=== PATIENT | female | born 1980 | race Two or more races ===

== ENCOUNTER → 2016-10-10 | Outpatient (CLI) | payer OTHER | LOC: FIMAGING 14:41 | PROVIDERS: ATTEND Obstetrics & Gynecology | DX: Z36 Encounter for antenatal screening of mother (principal); O24.112 Pre-existing type 2 diabetes mellitus, in pregnancy, second trimester; O09.522 Supervision of elderly multigravida, second trimester; Z3A.20 20 weeks gestation of pregnancy; E11.9 Type 2 diabetes mellitus without complications ==

== ENCOUNTER → 2016-12-09 | Outpatient (CLI) | payer OTHER | LOC: FIMAGING 08:12 | PROVIDERS: ATTEND Obstetrics & Gynecology | DX: O09.522 Supervision of elderly multigravida, second trimester (principal); O99.212 Obesity complicating pregnancy, second trimester; O24.112 Pre-existing type 2 diabetes mellitus, in pregnancy, second trimester; O36.8920 Maternal care for other specified fetal problems, second trimester, not applicable or unspecified; Z3A.21 21 weeks gestation of pregnancy ==

== ENCOUNTER → 2016-12-31 | Outpatient (CLI) | payer OTHER | LOC: FIMAGING 08:33 | PROVIDERS: ATTEND Obstetrics & Gynecology | DX: O24.112 Pre-existing type 2 diabetes mellitus, in pregnancy, second trimester (principal); E11.65 Type 2 diabetes mellitus with hyperglycemia; O09.522 Supervision of elderly multigravida, second trimester; O99.212 Obesity complicating pregnancy, second trimester; O36.8920 Maternal care for other specified fetal problems, second trimester, not applicable or unspecified; Z3A.24 24 weeks gestation of pregnancy; Z79.4 Long term (current) use of insulin ==

== ENCOUNTER → 2017-02-13 | Outpatient (CLI) | payer OTHER | LOC: FIMAGING 09:01 | PROVIDERS: ATTEND Obstetrics & Gynecology | DX: O24.113 Pre-existing type 2 diabetes mellitus, in pregnancy, third trimester (principal); O09.523 Supervision of elderly multigravida, third trimester; E11.9 Type 2 diabetes mellitus without complications; O99.213 Obesity complicating pregnancy, third trimester; Z79.4 Long term (current) use of insulin; Z3A.31 31 weeks gestation of pregnancy ==

== ENCOUNTER 2017-03-21 15:50 | Observation (INO) | payer OTHER ==
[2017-03-21] MEDS ORDERED: BETAMETHASONE IM SYRINGE IM ONE (17:17)
--- NOTE | 2017-03-21 17:21 | SOAPPROG ---
HUNG Progress Note Assessment/Plan: Assessment: 36-year-old @ 36.1 weeks with IDDM and multiple co-morbidities. She was sent over from clinic for extended monitoring for NR NST and BPP of 6. NST reactive. Plan: 1. NR NST at clinic. Now reactive. Repeat NST and possible BPP tomorrow () evening. 2. lung maturity. Betamethasone IM for lung maturity, in case delivery needs to be performed eminently. Return to hospital tomorrow evening (s /p 24h) for subsequent IM injection. 03/21/17 17:17 Subjective: No complaints. Reports good movement. Denies symptoms of hypo- or hyperglycemia. Objective: VSS NAD Abdomen soft [place]: No contractions FHR: 150, category I - Time Spent With Patient Time Spent With Patient: 25 minutes ICD10 Worksheet Patient Problems: Problems Problem Status Onset Insulin dependent diabetes mellitus Acute Non-reactive NST (non-stress test) Acute Third trimester Acute - ICD10 Problem Qualifiers (1) Insulin dependent diabetes mellitus (2) Third trimester (3) Non-reactive NST (non-stress test)
== END 2017-03-21 17:50 | disposition home or self-care (01) ==
LOC: FLD 15:50
PROVIDERS: ADMIT Obstetrics & Gynecology; ATTEND Obstetrics & Gynecology
DX: O09.523 Supervision of elderly multigravida, third trimester (principal); O24.013 Pre-existing type 1 diabetes mellitus, in pregnancy, third trimester; Z3A.36 36 weeks gestation of pregnancy
CPT/HCPCS: G0378 ×2; J0702

== ENCOUNTER 2017-03-22 17:56 | Observation (INO) | payer OTHER ==
[2017-03-22] MEDS ORDERED: BETAMETHASONE IM SYRINGE IM ONE (19:15)
--- NOTE | 2017-03-22 19:33 | OBPROG ---
Labor Progress Note Assessment/Plan: Assessment: cat 1 fhr denies pain/ no contractions BPP 8/8 growth us 55 % cephalic presentation jeffy 10 nst reactive reassuring elevated fs Increasing amount of insulin as needed with endocrinology assistance Plan:discharge to home with instructions. Fu in the office biweekly NST and weekly mira 03/22/17 19:30 Subjective/Intrapartum Course: 03/22/17 19:29 Feeling sleep deprived having difficulty resting. Elevated fs after steroids. Feeling positive movement . Denies leaking bleeding or cramping - SVE Dilation (cm): 0 Effacement (%): 0 Station: -3 Membranes: Intact - FHR Assessment Ruiz FHR (bpm): 135 FHR Pattern Variability: Moderate FHR Category: 1 - Physical Exam General Appearance: WD/WN, alert, no apparent distress Respiratory: chest non-tender, lungs clear, normal breath sounds Cardiac/Chest: regular rate, rhythm Abdomen: normal bowel sounds Extremities: normal range of motion, Sam's sign (negative homens) DTR- Lower Extremities: Knee (R): 1+, Knee (L): 1+ (no clonus) Skin: normal color, warm/dry Neuro/Psych: no motor/sensory deficits, alert, normal mood/affect, oriented x 3 ICD10 Worksheet Patient Problems: Problems Problem Status Onset Insulin dependent diabetes mellitus Acute Non-reactive NST (non-stress test) Acute Third trimester Acute
--- NOTE | 2017-03-22 20:15 | GHP ---
[f rep st] HISTORY AND PHYSICAL DATE OF ADMISSION: 03/22/2017 HISTORY OF PRESENT ILLNESS: The patient is a 36-year-old 5, para 0, 0, 4 AB, 0 livin g, with an EDC of 04/17/2017, who comes in with previous difficulty with a nonreactive NST yesterday on 03/21/2017. Betamethasone x1 given. Followup today with betamethasone #2, BPP, growth ultrasound , KODY, and an NST. The patient has been receiving care through [facility] since [place]. There was a change to the due date at that time from 04/17 to 04/23. The patient has consented to the second betamethasone. NST was reactive. Baseline was at 135, with positive accels. BPP was 8/8. A growth ultrasound was at the 55th percentile, with a 10 KODY. MEDICAL HISTORY: The patient has type 2 diabetes, on insulin, and [facility] Hemoglobin A1c in 10th percentile in early . GYNECOLOGICAL HISTORY: History of LEEP in 2001. Negative Pap since. IUD in 2010. PAST HISTORY: TAB in 2002, SAB and D and C in 02/2011, SAB with no D and C in 10/2014, and 04/2015 SAB with no D and C. FAMILY HISTORY: Noncontributory. SURGICAL HISTORY: D and C in 2010. Previous LEEP in 2001. PHYSICAL ASSESSMENT: GENERAL: The patient is awake, alert, and oriented x3. LUNGS: Clear bilatera lly. ABDOMEN: Bowel sounds are positive in all 4 quadrants. EXTREMITIES: DTRs are 1+ bilaterally, with no clonus. Homans sign was negative bilaterally. VITAL SIGNS: Blood pressure is 130/80. LABORATORY DATA: The patient is O-positive. Antibody negative. RPR was nonreactive. Rubella is im mune. Hepatitis is negative. HIV is negative. was negative. AFP was negative. The patie nt declined Pap with gonorrhea and chlamydia. Hepatitis C was also negative. PLAN: BPP, NST, and continued management of sugars that have been elevated since the betamethasone t [facility]. The patient will follow up with biweekly NSTs and weekly ROBs with [facility]. /[id number]/MODL
== END 2017-03-22 20:35 | disposition home or self-care (01) ==
LOC: FLD 17:56
PROVIDERS: ADMIT Advanced Practice Midwife; ATTEND Advanced Practice Midwife
DX: O09.523 Supervision of elderly multigravida, third trimester (principal); E11.9 Type 2 diabetes mellitus without complications; Z3A.36 36 weeks gestation of pregnancy
CPT/HCPCS: 59025; 76815; 76818; G0378; J0702

== ENCOUNTER 2017-03-24 17:56 | Observation (INO) | payer OTHER ==
[2017-03-24] MEDS ORDERED: ACETAMINOPHEN 500 MG TAB PO ONE (18:23)
[2017-03-24 18:42] LABS: % IMMATURE GRANULYOCYTES 1.2 % (0.0-1.1); ABSOLUTE IMMATURE GRANULOCYTES 0.14 10^3/uL (0.00-0.10); ADD DIFF? NO; ADD MORPH? NO; ADD SCAN? NO; ATYPICAL LYMPHOCYTE FLAG 0 (0-99); FRAGMENT RBC FLAG 0 (0-99); HEMATOCRIT 33.8 % (38.0-47.0); HEMOGLOBIN 11.8 g/dL (12.6-16.3); LEFT SHIFT FLG 0 (0-99); LIPEMIA HEMOLYSIS FLAG 90 (0-99); MEAN CELL HEMOGLOBIN 31.2 pg (27.9-34.1); MEAN CELL HEMOGLOBIN CONCENTR. 34.9 g/dL (32.4-36.7); MEAN CELL VOLUME 89.4 fL (81.5-99.8); MEAN PLATELET VOLUME 10.8 fL (8.7-11.7); PLATELET CLUMPS FLAG 0 (0-99); PLATELET COUNT 269 10^3/uL (150-400); RED BLOOD CELL COUNT 3.78 10^6/uL (4.18-5.33)
[2017-03-24 18:55] LABS: ALANINE AMINOTRANSFERASE 34 IU/L (9-52); ASPARTATE AMINOTRANSFERASE 34 IU/L (14-46); BILIRUBIN-UNCONJUGATED 0.1 mg/dL (0.0-1.1); CREATININE 0.6 mg/dL (0.6-1.0); GLOMERULAR FILTRATION RATE > 60; LACTATE DEHYDROGENASE 616 IU/L (313-618); URIC ACID 3.3 mg/dL (2.5-6.8)
[2017-03-24 19:03] LABS: BILIRUBIN,TOTAL 0.1 mg/dL (0.1-1.4)
--- NOTE | 2017-03-24 19:54 | OBPROG ---
Labor Progress Note Assessment/Plan: Assessment:cat 1 fhr pih labs wnl 1g tylenol to assist with headache resolution fs 178 denies leaking bleeding cramping vs wnl bp elevated irregularly however less than 140/90 with no pih symptoms Plan:warm blanket to head, 1 gram Tylenol, caffeine. Patient stated within 30 minutes the pain of the headache had lessened considerably discharge to home with instructions friday in the office 03/24/17 19:50 Subjective/Intrapartum Course: 03/24/17 19:49 here for a headache. BP elevated at the [facility] 130/88. To labor and delivery for an assessment Objective: 03/24/17 18:13 03/24/17 18:13 Uric Acid 3.3 mg/dL (2.5-6.8) 03/24/17 18:13 Total Bilirubin 0.1 mg/dL (0.1-1.4) 03/24/17 18:13 Conjugated Bilirubin 0.0 mg/dL (0.0-0.5) 03/24/17 18:13 Unconjugated Bilirubin 0.1 mg/dL (0.0-1.1) 03/24/17 18:13 AST 34 IU/L (14-46) 03/24/17 18:13 ALT 34 IU/L (9-52) 03/24/17 18:13 Lactate Dehydrogenase 616 IU/L (313-618) 03/24/17 18:13 - Physical Exam General Appearance: WD/WN, alert, no apparent distress Respiratory: chest non-tender, lungs clear, normal breath sounds Cardiac/Chest: regular rate, rhythm Abdomen: normal bowel sounds Extremities: normal range of motion, Sam's sign (negative bilaterally) DTR- Lower Extremities: Knee (R): 1+, Knee (L): 1+ (no clonus) Skin: normal color, warm/dry Neuro/Psych: no motor/sensory deficits, alert, normal mood/affect, oriented x 3 Oxytocin Orders Assessment - Pre-Induction/Augmentation Assessment Gestational Age: 36 week(s) and 4 day(s) ICD10 Worksheet Patient Problems: Problems Problem Status Onset Insulin dependent diabetes mellitus Acute Third trimester Acute
--- NOTE | 2017-03-24 20:28 | GHP ---
[f rep st] HISTORY AND PHYSICAL DATE OF ADMISSION: 03/24/2017 HISTORY OF PRESENT ILLNESS: The patient is a 36-year-old, 5, para 0, 0 A4, living 0 with an EDC of 04/23/2017 who comes in on 02/21/2017 with complaint of a headache since early a.m. on 02/21/2017. The patient's gestational age is 36 and 4/7 weeks', has recently received betamethasone x2. MEDICAL HISTORY: Diabetes type 2 on insulin, followed through [facility]. Has been havin g care through [facility] since 19 and 4/7 weeks', on 11/26/2016. GYNECOLOGICAL HISTORY: A LEEP in 2001. Negative Pap since. IUD use in 2010. . SURGICAL HISTORY: TAB 2011, D and C, SAB and IUD placed. PRESENT HISTORY: AMA. Hemoglobin A1c in early was 10%. LABS: Patient is O positive. Antibody negative. RPR is nonreactive. Rubella is immune. Hepatitis is negative. HIV is negative. Hep C is negative. Varicella was positive. The patient declined Pa p, gonorrhea and chlamydia. Innatal was negative. AFP was negative. PHYSICAL: GENERAL: Patient is awake, alert, oriented x3. LUNGS: Clear bilaterally. ABDOMEN: [place] el sounds are positive in all 4 quadrants. EXTREMITIES: DTRs are 1+ bilaterally with no clonus. JESSIE SIGNS: Blood pressures have been less than 140/90. Several pressures have been done here on the deck. The lowest is 123/79. On admit patient was given Tylenol, a warm blanket around her head. Stated that she thinks that mayb e she might have slept in an awkward position, this is why her head is hurting. PIH labs were comple eddie which were within normal limits. NST was a category 1. PLAN OF CARE: Discharge to home with instructions to follow up on Friday. Understands reasons to re turn leaking, bleeding, cramping, baby not moving. The patient's fingerstick on admit was 178. /[id number]/MODL
== END 2017-03-24 23:00 | disposition home or self-care (01) ==
LOC: FLD 17:56
PROVIDERS: ADMIT Advanced Practice Midwife; ATTEND Advanced Practice Midwife
DX: R51 Headache (principal); O09.523 Supervision of elderly multigravida, third trimester; Z3A.36 36 weeks gestation of pregnancy
CPT/HCPCS: 59025; G0378

== ENCOUNTER 2017-03-28 07:42 | Inpatient (IN) | payer OTHER ==
[2017-03-28] MEDS ORDERED: OXYTOCIN IV PRN (08:39)
[2017-03-28] MEDS ORDERED: EPSOM SALT 454 GM TP PRN (08:39)
[2017-03-28] MEDS ORDERED: AMPICILLIN SODIUM 2 GM in NS 100 ML IV ONE ×2 (08:39→11:15)
[2017-03-28] MEDS ORDERED: NS IV PRN (08:39)
[2017-03-28] MEDS ORDERED: TERBUTALINE SULFATE 1 MG/ML VIAL IV PRN (08:39)
[2017-03-28] MEDS ORDERED: LR 1,000 ML IV PRN (08:39)
[2017-03-28] MEDS ORDERED: OLIVE OIL 118 ML BTL MISC PRN (08:39)
[2017-03-28] MEDS ORDERED: LR 500 ML IV PRN (10:40)
[2017-03-28] MEDS ORDERED: OXYTOCIN 30 UNIT in NS 500 ML IV SCH (10:45)
[2017-03-28 11:05] LABS: % IMMATURE GRANULYOCYTES 0.4 % (0.0-1.1); ABSOLUTE IMMATURE GRANULOCYTES 0.05 10^3/uL (0.00-0.10); ADD DIFF? NO; ADD MORPH? NO; ADD SCAN? NO; ATYPICAL LYMPHOCYTE FLAG 0 (0-99); FRAGMENT RBC FLAG 0 (0-99); HEMATOCRIT 36.2 % (38.0-47.0); HEMOGLOBIN 12.6 g/dL (12.6-16.3); LEFT SHIFT FLG 0 (0-99); LIPEMIA HEMOLYSIS FLAG 90 (0-99); MEAN CELL HEMOGLOBIN CONCENTR. 34.8 g/dL (32.4-36.7); MEAN CELL VOLUME 88.9 fL (81.5-99.8); MEAN PLATELET VOLUME 10.7 fL (8.7-11.7); PLATELET CLUMPS FLAG 0 (0-99); PLATELET COUNT 295 10^3/uL (150-400); RED BLOOD CELL COUNT 4.07 10^6/uL (4.18-5.33); RED CELL DISTRIBUTION WIDTH 13.1 % (11.5-15.2)
[2017-03-28 11:13] LABS: ALANINE AMINOTRANSFERASE 30 IU/L (9-52); ASPARTATE AMINOTRANSFERASE 23 IU/L (14-46); BILIRUBIN,TOTAL 0.3 mg/dL (0.1-1.4); BILIRUBIN-UNCONJUGATED 0.3 mg/dL (0.0-1.1); CREATININE 0.6 mg/dL (0.6-1.0); GLOMERULAR FILTRATION RATE > 60; LACTATE DEHYDROGENASE 479 IU/L (313-618); URIC ACID 3.8 mg/dL (2.5-6.8)
--- NOTE | 2017-03-28 12:47 | GHP ---
[f rep st] PREOP HISTORY AND PHYSICAL DATE OF ADMISSION: 03/28/2017 HISTORY OF PRESENT ILLNESS: The patient is a 36-year-old, G5, A4 with an estimated due date of 04/17 per maternal specialist, who presents to Labor and Delivery at 37 weeks and 1 day with sp ontaneous rupture of membranes approximately 5:20 this morning with clear fluid. The patient initial ly only had a trickle, but then had more of a gush and continues to leak clear fluid here upon presen tation. The patient had spontaneous onset of contractions approximately 8:00 am, however, these are infrequent and only are feeling like menstrual cramping. The patient does have a history of positive GBS culture and is aware of the need for antibiotics. The patient also has a significant medical hi story of insulin-dependent diabetes pre-existing the , and the patient has not had good cont rol through the . She has been followed by [facility] and is on high doses of in sulin. The patient reports that her fasting this morning was 100 and the current blood sugar check a t 11:00 a.m. was 102. The patient reported eating a normal breakfast and having her current dose of Humulin 30 units and Humalog 30 units. The patient is advised of the intent of only having liquids t hrough labor to avoid the risk of aspiration if she needs a and we will monitor blood sugar s every 2 hours to assess when she might need IV glucose. The patient has had a natural intent for l abor, but is again aware of the recommendation for antibiotics because of the GBS and the recommendat ion for Pitocin if labor does not spontaneously increase to a more productive pattern. 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 The patient has a horse wrangler who she will call to come in and assist her with her labor attempt. CARE: The patient was initially followed by [facility] and transferred care to our office at 19 weeks gestation. In early care, the patient had Innatal negative test revealin g normal female chromosomes as well as a first trimester ultrasound screen that was normal. Other pr enatal labs were normal by the patient's report. The patient reports that her initial hemoglobin A1c in was greater than 10, and this has shown progressive decrease to 8.3 and then 6.9 to 6.5 in 3rd trimester. The patient has been following with Dr. Mcmahon who had to steadily increase i nsulin throughout the . The patient reports dietary control is only good about 60% of the t huey. The patient had a 24-hour urine baseline that was not completed until 23 weeks of vj t revealed 270 mg. The patient also had a cardiac echo that showed grossly normal cardiac toby manuel, but it was suboptimal views of the interventricular septum and aortic arch. The specialists rec ommended a echo in the hospital before discharge. The patient has declined surveillanc e on multiple occasions, feeling that she did not feel it was necessary, as she knew the baby was doi ng osmin. The patient has had nonreactive NSTs in the office but the patient has opted not to follow up. She did have a biophysical profile on February 18 that was minimally 6/8 and was seen on Labor and Delivery at which time she had a better reactive NST. Because of the concerns for placental supp ort, betamethasone was initiated and the patient had a course completed on March 21 and . T he patient improved her hydration and the fluid level was better on the ultrasound on March 22. Full growth was done at that time and estimated weight was the 55th percentile. Serial growth scans have been done with the specialist due to the diabetes and a single umbilical artery. The [place] has had glucosuria on visits to our office. Blood pressures have been in normal range, but poly ping up to the 80s diastolic on recent visits. LABS: Maternal blood type O positive with negative antibody screen. RPR nonreactive. Rube lla immune. Hepatitis B surface antigen negative. HIV negative. TSH was normal. PIH labs were nor mal in November. Hepatitis C antibody negative. Herpes type 1 positive. Herpes type 2 negative. Varic sloan immune. Patient declined a Pap smear and has a history of an February, negative Pap. Innat al verified testing was negative and MSAFP was normal. Positive GBS culture. CARE: The patient has insulin-dependent diabetes diagnosed in 2010 and has been seeing Dr. Mcmahon. Again, the patient was out of control when she conceived with hemoglobin A1c greater th an 10. The patient has had abnormal Pap smears with a LEEP performed in 2001 with negative Pap smear since. PAST SURGICAL HISTORY: TAB in 2002. Also a D&C in 2010 for a missed AB and an IUD was placed at vj t time. ALLERGIES: The patient reports allergy to metformin causing hives. Also reports that Invokana gives her shortness of breath and hives. Also, Novocain and lidocaine gives shortness of breath and heart palpitations. CURRENT MEDICATIONS: Upon admission vitamins, Humalog 30 units with each meal and Humulin 3 0 units b.i.d. SOCIAL HISTORY: The patient is , lives with her , Isaiah. The patient is a nonsmoker. No alcohol or drug use. PHYSICAL EXAM: GENERAL: Upon admission, the patient is an obese, female in no physical dis tress. The patient does have grossly ruptured membranes. VITAL SIGNS: Initial blood pressure was 1 31/84, pulse 103. The patient is afebrile. heart tone monitoring initially had a contiguous s ection that revealed category 1 tracing with a baseline in the 160s with good accelerations. Followi ng that, the monitoring has been difficult to keep consistent. There has been no evidence of D -cells documented and moderate variability with generally the baseline between the 150s and 170s. No regular contractions. PELVIC: Not performed at this time for dilation as the patient does not appe ar to be in labor yet and trying to minimize infection risk. The ultrasound performed on March 22 did reveal a vertex presentation. EXTREMITIES: Nontender, no edema noted. ASSESSMENT: Intrauterine at 37 weeks and 1 day. Insulin-dependent diabetes with very poor control with conception and poor control throughout the . Positive GBS culture. Spontaneo us rupture of membranes today without any real onset of contractions at this point. History of a ANNALISA P. Single umbilical artery with growth scans done and no signs of polyhydramnios and estimated weight in the 55th percentile. PLAN: We are giving the patient IV antibiotics. Pitocin has been recommended, but the patient has b een wanting to wait for spontaneous increase of contractions. She has been advised that after 8 hours fr om rupture, Pitocin will be recommended. We will attempt continuous monitoring, but this fetus is di fficult to maintain consistent tracing. The fetus does have increased risk of intolerance with a single umbilical artery and the diabetes as well as previously poor signs with monitoring with bio physical profile and NSTs. Betamethasone was received on March 21 and . Will proceed with observation at this time and induction when the patient will allow. For diabetic m onitoring, we will check blood sugars every 2 hours and institute IV glucose and insulin when n eeded. nurse practitioner is aware of the patient's diabetic status for preparation for the . /[id number]/MODL
[2017-03-28] MEDS: AMPICILLIN SODIUM 1 GM in NS 100 ML IV SCH ×2 (15:40→19:32)
--- NOTE | 2017-03-28 18:16 | PREANESOB ---
Obstetric Pre-Anesthesia Info - General Info : 5 Para: 0 ANN: 04/17/17 Gestational Age: 37 week(s) and 1 day(s) - Info Status: Full Term Monitors: External FHR Pattern: Reassuring - Labor Status Cervical Dilation per last OB SVE: 2 Labor Epidural: Proposed (wants to try nitrous for a while) Anesthesia Allergies/Adverse Reactions: Allergy/AdvReac Type Severity Reaction Status Date / Time canagliflozin [From Invokana] Allergy Verified 03/21/17 16:38 lidocaine [From Lidocare] Allergy Verified 03/21/17 16:38 metformin Allergy Verified 03/21/17 16:38 Home Medications: Medication Instructions Recorded Humalog 30 units SQ TID 03/21/17 1 tab PO DAILY 03/21/17 CO Q-10 200 mg PO DAILY 03/22/17 Dha/Epa/Mv/Dng Chai/Hrb42 1,000 mg PO DAILY 03/22/17 FOLIC ACID 1,000 mcg PO DAILY 03/22/17 HUMULIN R 32 unit SQ BID 03/22/17 VITAMIN D 5,000 iunits PO DAILY 03/22/17 Visit Medications: Generic Name Dose Route Start Last Admin Trade Name Freq PRN Reason Stop Dose Admin Ampicillin Sodium 1 gm/ Sodium 100 mls @ 200 mls/hr 03/28/17 15:00 03/28/17 15:40 Chloride IV 04/27/17 14:59 100 mls Q4H DEBORA Administration Protocol Lactated Ringer's 1,000 mls @ 0 mls/hr 03/28/17 08:39 Lr IV 09/24/17 08:38 PRN PRN SEE PROTOCOL CONDITIONS Protocol Per Protocol Oxytocin 20 unit/ Sodium 1,002 mls @ 150 mls/hr 03/28/17 08:39 Chloride IV PRN PRN Post- bleeding Lactated Ringer's 500 mls @ 500 mls/hr 03/28/17 10:40 Lr IV PRN PRN Maternal Hypotension Oxytocin 30 unit/ Sodium 503 mls @ 0 mls/hr 03/28/17 10:45 Chloride IV 09/24/17 10:44 CONT DEBORA Protocol Per Protocol Ibuprofen 600 mg 03/28/17 08:39 Motrin PO 09/24/17 08:38 Q6HRS PRN post , inflammation Magnesium Sulfate 454 gm 03/28/17 08:39 Epsom Salt TP 09/24/17 08:38 Q1H PRN perineal discomfort Moore Oil 118 ml 03/28/17 08:39 Sweet Oil MISC 09/24/17 08:38 ONCE PRN perineal massage Terbutaline Sulfate 0.25 mg 03/28/17 08:39 Brethine IV 09/24/17 08:38 ONCE PRN Tachysystole Discontinued Medications Generic Name Dose Route Start Last Admin Trade Name Waldo PRN Reason Stop Dose Admin Ampicillin Sodium 2 gm/ Sodium 110 mls @ 220 mls/hr 03/28/17 08:39 03/28/17 11:33 Chloride IV 03/28/17 09:08 110 mls ONCE ONE Administration Protocol Ampicillin Sodium 2 gm/ Sodium 110 mls @ 220 mls/hr 03/28/17 11:15 Chloride IV 03/28/17 11:44 ONCE ONE Protocol - Anesthesia History Anesthesia & Operative History: Prob w/Prior Anesthesia (allergy to novocaine ( not lidocaine), hives at dentist office) Family Anesthesia History: Negative - Social History Substance Use/Abuse: Denies - Vital Signs Height/Weight (Nursing): Height 157.48 cm Weight 120.202 kg - Focused Exam Neck exam: increased neck circumference Mallampati Score: Class 3 Mouth exam: normal dental/mouth exam Pulmonary: no respiratory distress Cardiovascular: regular rate and rhythym Labs: 03/28/17 10:30 03/28/17 10:30 Patient ABO/Rh O POSITIVE 03/28/17 10:30 Uric Acid 3.8 mg/dL (2.5-6.8) 03/28/17 10:30 Total Bilirubin 0.3 mg/dL (0.1-1.4) 03/28/17 10:30 Conjugated Bilirubin 0.0 mg/dL (0.0-0.5) 03/28/17 10:30 Unconjugated Bilirubin 0.3 mg/dL (0.0-1.1) 03/28/17 10:30 AST 23 IU/L (14-46) 03/28/17 10:30 ALT 30 IU/L (9-52) 03/28/17 10:30 Lactate Dehydrogenase 479 IU/L (313-618) 03/28/17 10:30 - Plan Anesthetic Plan: BERNARD or CSE Consent Signed and on Chart: No Patient/Guardian Understands and Agrees to Plan: Yes Urgent/Emergent Case: Anes eval completed preop but documented later for safe timely pt care General Comments: Patient wants to wait for epidural for awhile. Will sign consent then.
[2017-03-28] MEDS ORDERED: BUPIVACAINE 0.25% 30 ML SDV ONE (18:47)
[2017-03-28] MEDS ORDERED: PHENYLEPHRINE HCL 100 MCG/ML SYR ONE (18:47)
[2017-03-28] MEDS ORDERED: fentaNYL 2MCG/ML/BUP 0.1% RTU 100 ML BAG EP ONE (18:47)
[2017-03-28] MEDS ORDERED: LIDOCAINE 1% 2 ML INJ ONE (18:49)
[2017-03-28] MEDS ORDERED: fentaNYL 100 MCG/2 ML INJ ONE ×2 (18:50→21:10)
[2017-03-28] MEDS ORDERED: NALOXONE HCL 0.4 MG/ML INJ IVP PRN ×3 (19:31→23:09)
[2017-03-28] MEDS ORDERED: PHENYLEPHRINE HCL 100 MCG/ML SYR IVP PRN ×2 (19:31→23:09)
[2017-03-28] MEDS ORDERED: ONDANSETRON 4 MG/2 ML VIAL IVP PRN ×3 (19:31→23:09)
--- NOTE | 2017-03-28 19:38 | SOAPPROG ---
SOAP Progress Note Assessment/Plan: Assessment: Patient states allergy to "lidocaine" but upon questioning, she doesn't really know if it was lidocaine. In fact she thinks it was novocaine which she received at dentist's office. Plan:I skin tested patient with small doses of lidocaine and bupivacaine during the course of administering an epidural. She had no reaction to either medication. We're trying to correct the erroneous entry in [facility]. 03/28/17 19:34 03/28/17 19:38 Objective: Laboratory Results 03/28/17 10:30 03/28/17 10:30 ICD10 Worksheet Patient Problems: Problems Problem Status Onset Insulin dependent diabetes mellitus Acute Third trimester Acute
[2017-03-28] MEDS ORDERED: fentaNYL 2MCG/ML/BUP 0.1% RTU 100 ML EP SCH (20:00)
[2017-03-28] MEDS ORDERED: LR 500 ML IV SCH (20:00)
--- NOTE | 2017-03-28 20:10 | OBPROG ---
Labor Progress Note Assessment/Plan: Assessment: IUP at 37w1d SROM at 0520, clear, GBS +, on abx just rec'd BERNARD and is comfortable IDDM - BS have maintained 100-110 Plan: placed FSE for better monitoring, rec beginning pitocin 03/28/17 20:06 Subjective/Intrapartum Course: 03/28/17 20:08 pt comfortable with BERNARD, Anesth tested pt and she does NOT have a lidocaine allergy and was able to get BERNARD. Cont to leak clear fluid. Pt agrees to FSE and pitocin Objective: 03/28/17 10:30 03/28/17 10:30 Patient ABO/Rh O POSITIVE 03/28/17 10:30 Uric Acid 3.8 mg/dL (2.5-6.8) 03/28/17 10:30 Total Bilirubin 0.3 mg/dL (0.1-1.4) 03/28/17 10:30 Conjugated Bilirubin 0.0 mg/dL (0.0-0.5) 03/28/17 10:30 Unconjugated Bilirubin 0.3 mg/dL (0.0-1.1) 03/28/17 10:30 AST 23 IU/L (14-46) 03/28/17 10:30 ALT 30 IU/L (9-52) 03/28/17 10:30 Lactate Dehydrogenase 479 IU/L (313-618) 03/28/17 10:30 - SVE Dilation (cm): 4 Effacement (%): 100 Station: -1 Membranes: SROM Amniotic Fluid Color: Clear - Contraction Pattern Assessment Current Contraction Pattern: Regular (q 3-6 min) - FHR Assessment Ruiz FHR (bpm): 150 FHR Pattern Variability: Moderate FHR Category: 2 (late decels noted with recent ctxns since placement of FSE and more reliable monitoring of baby.) - Procedures Non-surgical Procedures: FSE (placed without problems) - AP Antepartum Course: 03/28/17 20:18 IDDM with poor control - early preg HgbA1c >10, FBS 90-120s. echo showed suboptimal aortic arch and interventricular septum. BMZ given - Physical Exam General Appearance: WD/WN, alert Estimated Weight: 2501-3400g Abdomen: non-tender, soft Skin: normal color, warm/dry Neuro/Psych: alert, normal mood/affect Oxytocin Orders Assessment - Pre-Induction/Augmentation Assessment Indication: inadequate ctxn pattern after SROM and now BERNARD Presentation: Vertex Gestational Age: 37 week(s) and 1 day(s) Gestational Age Determined By: Ultrasound (MFM determination) Estimated Weight: 2501-3400g Membrane Status: Ruptured Current Contraction Pattern: Regular (q 3-5 min) - Heart Rate Pattern Ruiz FHR Baseline (bpm): 150 FHR Category: 2 FHR Pattern Variability: Moderate FHR Accelerations: Present FHR Decelerations: Variable - Paredes's Score Dilation: 3-4cm Effacement: 80+ Station: -1,0 Cervix: Soft Cervix Position: Mid Paredes Score Total: 10 - Induction/Augmentation Consent Risks/Benefits of Procedure Reviewed/Pt Agrees to Proceed: Yes ICD10 Worksheet Patient Problems: Problems Problem Status Onset SROM (spontaneous rupture of membranes) Acute Insulin dependent diabetes mellitus Acute Third trimester Acute - ICD10 Problem Qualifiers (1) SROM (spontaneous rupture of membranes)
--- NOTE | 2017-03-28 21:02 | OBPROG ---
Labor Progress Note Assessment/Plan: Assessment: IUP at 37w1d SROM at 0520, clear, GBS +, on abx just rec'd BERNARD and is comfortable IDDM - BS have maintained 100-110 FSE - better monitoring FHTs - variables noted Plan: IUPC placed to fascilitate amnioinfusion and better guide pitocin usage 03/28/17 20:06 03/28/17 20:58 Subjective/Intrapartum Course: 03/28/17 20:08 pt comfortable with BERNARD, Anesth tested pt and she does NOT have a lidocaine allergy and was able to get BERNARD. Cont to leak clear fluid. Pt agrees to FSE and pitocin 03/28/17 21:00 Pt comfortable. pt advised that there are variable decels and likely because of LOF for 15+ hrs. discussed amnioinfusion - pt agrees to IUPC and amnioinfusion Objective: 03/28/17 10:30 03/28/17 10:30 Patient ABO/Rh O POSITIVE 03/28/17 10:30 Uric Acid 3.8 mg/dL (2.5-6.8) 03/28/17 10:30 Total Bilirubin 0.3 mg/dL (0.1-1.4) 03/28/17 10:30 Conjugated Bilirubin 0.0 mg/dL (0.0-0.5) 03/28/17 10:30 Unconjugated Bilirubin 0.3 mg/dL (0.0-1.1) 03/28/17 10:30 AST 23 IU/L (14-46) 03/28/17 10:30 ALT 30 IU/L (9-52) 03/28/17 10:30 Lactate Dehydrogenase 479 IU/L (313-618) 03/28/17 10:30 - SVE Dilation (cm): 4 Effacement (%): 100 Station: -1 Membranes: SROM Amniotic Fluid Color: Clear - Contraction Pattern Assessment Current Contraction Pattern: Regular (q 2-6 min) - FHR Assessment Ruiz FHR (bpm): 140 FHR Pattern Variability: Moderate FHR Category: 2 (variable decels) - Procedures Non-surgical Procedures: FSE (placed without problems), IUPC (placed without problems) - AP Antepartum Course: 03/28/17 20:18 IDDM with poor control - early preg HgbA1c >10, FBS 90-120s. echo showed suboptimal aortic arch and interventricular septum. BMZ given - Physical Exam Estimated Weight: 2501-3400g Oxytocin Orders Assessment - Pre-Induction/Augmentation Assessment Presentation: Vertex Gestational Age: 37 week(s) and 1 day(s) Estimated Weight: 2501-3400g ICD10 Worksheet Patient Problems: Problems Problem Status Onset SROM (spontaneous rupture of membranes) Acute Insulin dependent diabetes mellitus Acute Third trimester Acute - ICD10 Problem Qualifiers (1) SROM (spontaneous rupture of membranes)
[2017-03-28] MEDS ORDERED: PROPOFOL/EMULSION 500 MG/50 ML BOTTLE IV ONE (21:07)
[2017-03-28] MEDS ORDERED: CEFAZOLIN 2 GM/DEXTROSE/100 ML BAG IV ONE (21:10)
[2017-03-28] MEDS ORDERED: MIDAZOLAM 2 MG/2 ML VIAL ONE (21:25)
[2017-03-28] MEDS ORDERED: METHYLERGONOVINE MAL 0.2 MG/ML INJ ONE (21:49)
[2017-03-28] MEDS ORDERED: HEMABATE 250 MCG/1 ML AMP IM ONE (21:50)
[2017-03-28 21:54] LABS: PH VENOUS CORD BLOOD 7.18 (7.20-7.42)
[2017-03-28] MEDS ORDERED: morphINE PF 5 MG/10 ML INJ ONE (21:57)
[2017-03-28] MEDS ORDERED: OXYTOCIN 100 UNITS/10 ML VIAL ONE (21:58)
[2017-03-28] MEDS ORDERED: LIDOCAINE 2% 5 ML SDV ONE (21:58)
[2017-03-28] MEDS ORDERED: PHENYLEPHRINE 10 MG/ML SDV ONE (21:58)
[2017-03-28] MEDS ORDERED: LIDO/EPI 2% **for epidural** 20 ML SDV ONE (21:58)
[2017-03-28] MEDS ORDERED: ROCURONIUM 50 MG/5 ML VIAL ONE (22:04)
[2017-03-28] MEDS ORDERED: ONDANSETRON 4 MG/2 ML VIAL ONE (22:13)
[2017-03-28] MEDS ORDERED: HYDROmorphONE/DILAUDID 1 MG/ML INJ IVP PRN (23:09)
[2017-03-28] MEDS ORDERED: fentaNYL 100 MCG/2 ML INJ IVP PRN (23:09)
--- NOTE | 2017-03-28 23:09 | POSTANESTH ---
Post Anesthetic Evaluation Cardiovascular Status: Normal, Stable Respiratory Status: Normal, Stable Level of Consciousness/Mental Status: Can Participate in Eval Pain Control: Adequate, Prn Tx Ordered Nausea/Vomiting Control: Adequate, Prn Tx Ordered Complications Possibly Related to Anesthesia: None Noted
[2017-03-28] MEDS ORDERED: POLYETHYLENE GLYCOL 3350 17 GM PKT PO PRN (23:22)
[2017-03-28] MEDS ORDERED: BISACODYL 10 MG SUPP PR PRN (23:22)
[2017-03-28] MEDS ORDERED: MAGNESIUM HYDROXIDE 30 ML UDCUP PO PRN (23:22)
[2017-03-28] MEDS ORDERED: LACTULOSE 20 GM/30 ML UDCUP PO PRN (23:22)
--- NOTE | 2017-03-28 23:33 | OBDEL ---
Info Type: Primary Presentation at Delivery: Vertex L&D Analgesia/Anesthesia Type: Epidural GBS+: Yes (4 doses) Antibiotic Used for + GBS: Ampicillin Intrapartum Medications: Generic Name Dose Route Start Last Admin Trade Name Freq PRN Reason Stop Dose Admin Ampicillin Sodium 1 gm/ Sodium 100 mls @ 200 mls/hr 03/28/17 15:00 03/28/17 19:32 Chloride IV 04/27/17 14:59 100 mls Q4H DEBORA Administration Protocol Oxytocin 30 unit/ Sodium 503 mls @ 0 mls/hr 03/28/17 10:45 03/28/17 20:10 Chloride IV 09/24/17 10:44 503 mls CONT DEBORA Administration Protocol Per Protocol Discontinued Medications Generic Name Dose Route Start Last Admin Trade Name Freq PRN Reason Stop Dose Admin Ampicillin Sodium 2 gm/ Sodium 110 mls @ 220 mls/hr 03/28/17 08:39 03/28/17 11:33 Chloride IV 03/28/17 09:08 110 mls ONCE ONE Administration Protocol - Infant Care Provider Rod Filler/ACCORDION TUNER: Graciela Houston - Hospital Course Intrapartum: 03/28/17 20:08 pt comfortable with BERNARD, Anesth tested pt and she does NOT have a lidocaine allergy and was able to get BERNARD. Cont to leak clear fluid. Pt agrees to FSE and pitocin 03/28/17 21:00 Pt comfortable. pt advised that there are variable decels and likely because of LOF for 15+ hrs. discussed amnioinfusion - pt agrees to IUPC and amnioinfusion Vaginal Delivery - Labor and Delivery Onset of Contractions Date: 03/28/17 Onset of Contractions Time: 08:00 Amniotic Fluid Color: Clear Non-surgical Procedures: FSE (placed without problems), IUPC (placed without problems) Cord Gases: Cord Gases Cord Blood PCO2 REJ 03/28/17 21:45 Cord Base Excess REJ 03/28/17 21:45 Cord ABG pH REJ 03/28/17 21:45 Cord VBG pH 7.18 (7.20-7.42) L 03/28/17 21:45 Operative Report - Delivery Pre-op Diagnoses: IUP at 37w1d, IDDM - poorly controlled, SROM, bradycardia Post-op Diagnoses: same, delivered History of Prior Section: No Number of Prior Sections: 0 Nulliparous Prior to Delivery: No Indications for Current Section: Non-reas. Status Procedure: Emergent Surgeon: Araceli Jerry [employer] Machine Operator: Elly Delcid () Anesthesiologist: Nader Payan Complications: None Findings: normal uterus, tubes, ovaries. Getting to baby for delivery difficult due to obesity, 11 min from incision to delivery. Mild difficulty with del of head from layer of abdominal wall and angle of delivery - mitivac applied and one easy gentle traction and head delivered through incision. no NC noted. Incision closed with double layer. clear fluid at delivery. Baby with low tone at delivery. Cord gases obtained. no obvious abruption of placenta - manually removed from fundus - intact. Interior wiped for retained placental membranes. Bovie used on edges of hysterotomy. rectus muscles reapprox with 3- 0 vicryl. alena's closed with 3-0. XRAY done after the case due to lack of count due to emergent nature. Specimen(s)/Path: Placenta IV Fluid (ml): 2,200 EBL: 1200 Cord Gases: Cord Gases Cord Blood PCO2 REJ 03/28/17 21:45 Cord Base Excess REJ 03/28/17 21:45 Cord ABG pH REJ 03/28/17 21:45 Cord VBG pH 7.18 (7.20-7.42) L 03/28/17 21:45 Data Ruiz Delivery Date: 03/28/17 Delivery Time: 21:39 ANN: 04/17/17 Gestational Age: 37 week(s) and 1 day(s) Sex of : Female Weight (gm): 2778 g (6#2) Score (1 Min): 3 Score (5 Min): 7 ICD10 Worksheet Patient Problems: Problems Problem Status Onset delivery with vacuum assistance, delivered, current hospitalization Acute Insulin dependent diabetes mellitus Acute - ICD10 Problem Qualifiers (1) SROM (spontaneous rupture of membranes)
--- NOTE | 2017-03-29 00:06 | OBPROG ---
Labor Progress Note Assessment/Plan: Assessment: IUP at 37w1d - NOTE WRITTEN AFTER DELIVERY SROM at 0520, clear, GBS +, on abx just rec'd BERNARD and is comfortable IDDM - BS have maintained 100-110 BRADYCARDIA AND DECISION FOR C/S DELIVERY Plan: At 21:04, bradycardia began with abrupt decel to 50-60s. No improvement despite position change, O2, d/c pitocin, increased fluids. Pt/husb advised need for urgent delivery and taken to OR. When pt arrived in OR at 21:11, FHTs still in 60s but began slow improvement and back to 130s by 21:15. Rapid prep for OR was slowed and instead of GETA, the BERNARD was dosed up. FHTs continued slow climb and were up in 200s when FSE removed to drape. 03/28/17 20:06 03/28/17 20:58 03/28/17 23:57 Subjective/Intrapartum Course: 03/28/17 20:08 pt comfortable with BERNARD, Anesth tested pt and she does NOT have a lidocaine allergy and was able to get BERNARD. Cont to leak clear fluid. Pt agrees to FSE and pitocin 03/28/17 21:00 Pt comfortable. pt advised that there are variable decels and likely because of LOF for 15+ hrs. discussed amnioinfusion - pt agrees to IUPC and amnioinfusion 03/29/17 00:06 Pt scared with decel and switching positions and agrees to C/S Objective: 03/28/17 10:30 03/28/17 10:30 Patient ABO/Rh O POSITIVE 03/28/17 10:30 Uric Acid 3.8 mg/dL (2.5-6.8) 03/28/17 10:30 Total Bilirubin 0.3 mg/dL (0.1-1.4) 03/28/17 10:30 Conjugated Bilirubin 0.0 mg/dL (0.0-0.5) 03/28/17 10:30 Unconjugated Bilirubin 0.3 mg/dL (0.0-1.1) 03/28/17 10:30 AST 23 IU/L (14-46) 03/28/17 10:30 ALT 30 IU/L (9-52) 03/28/17 10:30 Lactate Dehydrogenase 479 IU/L (313-618) 03/28/17 10:30 - SVE Dilation (cm): 4 Effacement (%): 100 Station: -1 Membranes: SROM Amniotic Fluid Color: Clear - Contraction Pattern Assessment Current Contraction Pattern: Regular (q 2-6 min) - Procedures Non-surgical Procedures: FSE (placed without problems), IUPC (placed without problems) - AP Antepartum Course: 03/28/17 20:18 IDDM with poor control - early preg HgbA1c >10, FBS 90-120s. echo showed suboptimal aortic arch and interventricular septum. BMZ given - Physical Exam Estimated Weight: 2501-3400g Oxytocin Orders Assessment - Pre-Induction/Augmentation Assessment Presentation: Vertex Gestational Age: 37 week(s) and 1 day(s) Estimated Weight: 2501-3400g ICD10 Worksheet Patient Problems: Problems Problem Status Onset delivery with vacuum assistance, delivered, current hospitalization Acute Insulin dependent diabetes mellitus Acute - ICD10 Problem Qualifiers (1) SROM (spontaneous rupture of membranes)
[2017-03-29] MEDS: KETOROLAC 30 MG/1 ML SDV IVP SCH ×4 (01:58→19:03)
[2017-03-29] MEDS: AMPICILLIN SODIUM 1 GM in NS 100 ML IV SCH ×2 (03:10→03:38)
[2017-03-29] MEDS ORDERED: MISOPROSTOL 200 MCG TAB ONE (04:29)
[2017-03-29] MEDS ORDERED: AMMONIA AROMATIC 1 EACH AMP IH ONE (04:30)
--- NOTE | 2017-03-29 09:57 | OBPP ---
Progress Note Assessment/Plan: Assessment: 1) s/p PCS secondary to intolerance to labor POD # 1 - pt is stble 2) IDDM - BS are stable at this time 3) Anemia - pt is asymptomatic, PLTs stable Plan: Continue routine post-op care Encourage ambulation Will order iron/colace Cont to monitor BS, if greater than 200 will consult with hospitalist for management Insulin held for now Remove dressing this evening, pt may shower Start po meds as ordered 03/29/17 09:52 Subjective/ Course: 03/29/17 09:55 Pt seen and examined. She is doing well, no complaints. No pain at this time, well controlled. Pt is OOB standing near baby in NICU, daniela diet, matias in place , no flatus yet. Denies any f/c/n/v/CP or SOB. Mild lochia. She desires to pump and eventually breastfeed. Objective: 03/29/17 05:45 03/28/17 10:30 Patient ABO/Rh O POSITIVE 03/28/17 10:30 Uric Acid 3.8 mg/dL (2.5-6.8) 03/28/17 10:30 Total Bilirubin 0.3 mg/dL (0.1-1.4) 03/28/17 10:30 Conjugated Bilirubin 0.0 mg/dL (0.0-0.5) 03/28/17 10:30 Unconjugated Bilirubin 0.3 mg/dL (0.0-1.1) 03/28/17 10:30 AST 23 IU/L (14-46) 03/28/17 10:30 ALT 30 IU/L (9-52) 03/28/17 10:30 Lactate Dehydrogenase 479 IU/L (313-618) 03/28/17 10:30 Temp Pulse Resp BP Pulse Ox 36.8 C 98 17 108/73 93 03/29/17 08:00 03/29/17 08:00 03/29/17 08:00 03/29/17 08:00 03/29/17 08:00 Uterine Position/Fundal Height: Umbilicus -1 Uterine Tone: Firm Physical Exam - Physical Exam Respiratory: lungs clear, normal breath sounds Cardiac/Chest: regular rate, rhythm Abdomen: normal bowel sounds, non-tender, soft Extremities: non-tender, normal inspection Skin: normal color, warm/dry Neuro/Psych: alert, normal mood/affect, oriented x 3
[2017-03-29] MEDS: SENNOSIDES/DOCUSATE SODIUM TAB PO SCH ×2 (10:28→22:34)
[2017-03-29] MEDS: DOCUSATE SODIUM 100 MG CAP PO SCH ×2 (15:20→22:16)
[2017-03-29] MEDS: IRON POLYSAC/IRON HEME 28 MG TAB PO SCH ×2 (15:20→22:16)
[2017-03-29] MEDS: HYDROCODONE/APAP 5/325 TAB PO PRN (22:16)
[2017-03-29] MEDS: IBUPROFEN 600 MG TAB PO PRN (22:16)
[2017-03-29] MEDS ORDERED: D50W 25 GM/50 ML SYR IVP PRN (22:24)
--- NOTE | 2017-03-29 22:28 | PDGENHP ---
History and Physical - Chief Complaint Hyperglycemia - History of Present Illness Primary service: Obstetrics, Dr. Pretty Reason for consultation: Hyperglycemia and diabetes HPI: 28-year-old female presents with spontaneous rupture membranes at 37 weeks and 1 day with onset at 5:30 a.m. on 03/28/2017, characterized as small trickle that became a larger gush, with associated contractions at 8:00 a.m. on the day of delivery, 03/28/2017. She underwent a and delivered a healthy girl. She did recently have some lower abdominal discomfort at the surgical sites, but this has been alleviated with rest and time. Prior to her delivery, the patient had been up titrating her long-acting and short-acting insulin. She had been on Humulin NPH 30 units twice daily, and Humalog mealtime insulin 30 with breakfast, 28 with lunch, 34 with dinner. These values had started substantially lower when the patient initially wound that she was , and were up titrated throughout her , moving her hemoglobin A1c from 10% at the beginning, to 6.5% near the delivery date. She has not experienced hypoglycemia and prior to her , her hemoglobin A1c had been ranging between 9 and 10% while the patient was attempting to manage her diabetes with dietary fasting. History Information - Allergies/Home Medication List Allergies/Adverse Reactions: canagliflozin [From Invokana] Allergy (Verified 03/21/17 16:38) metformin Allergy (Verified 03/21/17 16:38) Home Medications: Humalog 30 units SQ TID 03/21/17 [Last Taken 03/22/17] 1 tab PO DAILY 03/21/17 [Last Taken 03/22/17] CO Q-10 200 mg PO DAILY 03/22/17 [Last Taken 03/22/17] Dha/Epa/Mv/Dng Chai/Hrb42 1,000 mg PO DAILY 03/22/17 [Last Taken 03/22/17] FOLIC ACID 1,000 mcg PO DAILY 03/22/17 [Last Taken 03/22/17] HUMULIN R 32 unit SQ BID 03/22/17 [Last Taken 03/22/17 08:00] VITAMIN D 5,000 iunits PO DAILY 03/22/17 [Last Taken 03/22/17] I have personally reviewed and updated: family history, medical history, social history, surgical history - Past Medical History diabetes type 2 (Insulin-dependent, diagnosed approximately 4 years ago) Additional medical history: A4 - Surgical History Additional surgical history: Leep 2002. D&C 2010. 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 Review of Systems Review of Systems: ROS: 10pt was reviewed & negative except for what was stated in HPI & below Gastrointestinal: Reports: abdominal pain (Subsided) Physical Exam Physical Exam: Temp Pulse Resp BP Pulse Ox 36.6 C 100 14 105/64 96 03/29/17 17:00 03/29/17 17:00 03/29/17 17:00 03/29/17 17:00 03/29/17 17:00 Constitutional: no apparent distress, not in pain, obese, No uncomfortable Eyes: PERRL, anicteric sclera, EOMI Ears, Nose, Mouth, Throat: moist mucous membranes, hearing normal, ears appear normal, no oral mucosal ulcers Cardiovascular: regular rate and rhythym, no murmur, rub, or gallop, edema ( Trace bilateral lower extremity) Respiratory: no respiratory distress, no rales or rhonchi, clear to auscultation Gastrointestinal: normoactive bowel sounds, soft, non-tender abdomen, no palpable masses, distension (Mild) Neurologic: AAOx3, sensation intact bilaterally Psychiatric: interacting appropriately, not anxious, not encephalopathic, thought process linear Lab Data & Imaging Review 03/29/17 05:45 03/28/17 10:30 WBC 12.15 10^3/uL (3.80-9.50) H 03/28/17 10:30 RBC 4.07 10^6/uL (4.18-5.33) L 03/28/17 10:30 Hgb 12.6 g/dL (12.6-16.3) 03/28/17 10:30 Hct 29.8 % (38.0-47.0) L 03/29/17 05:45 MCV 88.9 fL (81.5-99.8) 03/28/17 10:30 MCH 31.0 pg (27.9-34.1) 03/28/17 10:30 MCHC 34.8 g/dL (32.4-36.7) 03/28/17 10:30 RDW 13.1 % (11.5-15.2) 03/28/17 10:30 Plt Count 295 10^3/uL (150-400) 03/28/17 10:30 MPV 10.7 fL (8.7-11.7) 03/28/17 10:30 Neut % (Auto) 79.2 % (39.3-74.2) H 03/28/17 10:30 Lymph % (Auto) 15.5 % (15.0-45.0) 03/28/17 10:30 [place] % (Auto) 4.3 % (4.5-13.0) L 03/28/17 10:30 Eos % (Auto) 0.3 % (0.6-7.6) L 03/28/17 10:30 Baso % (Auto) 0.3 % (0.3-1.7) 03/28/17 10:30 Nucleat RBC Rel Count 0.0 % (0.0-0.2) 03/28/17 10:30 Absolute Neuts (auto) 9.62 10^3/uL (1.70-6.50) H 03/28/17 10:30 Absolute Lymphs (auto) 1.88 10^3/uL (1.00-3.00) 03/28/17 10:30 Absolute Monos (auto) 0.52 10^3/uL (0.30-0.80) 03/28/17 10:30 Absolute Eos (auto) 0.04 10^3/uL (0.03-0.40) 03/28/17 10:30 Absolute Basos (auto) 0.04 10^3/uL (0.02-0.10) 03/28/17 10:30 Absolute Nucleated RBC 0.00 10^3/uL (0-0.01) 03/28/17 10:30 Immature Gran % 0.4 % (0.0-1.1) 03/28/17 10:30 Immature Gran # 0.05 10^3/uL (0.00-0.10) 03/28/17 10:30 Cord Blood PCO2 REJ 03/28/17 21:45 Cord Base Excess REJ 03/28/17 21:45 Cord ABG pH REJ 03/28/17 21:45 Cord VBG pH 7.18 (7.20-7.42) L 03/28/17 21:45 BUN 10 mg/dL (7-23) 03/28/17 10:30 Creatinine 0.6 mg/dL (0.6-1.0) 03/28/17 10:30 Estimated GFR > 60 03/28/17 10:30 POC Glucose 201 mg/dL (70-100) H 03/29/17 18:29 Glucose 2 Hr Postprand 97 mg/dL (45-120) 03/28/17 10:30 Uric Acid 3.8 mg/dL (2.5-6.8) 03/28/17 10:30 Total Bilirubin 0.3 mg/dL (0.1-1.4) 03/28/17 10:30 Conjugated Bilirubin 0.0 mg/dL (0.0-0.5) 03/28/17 10:30 Unconjugated Bilirubin 0.3 mg/dL (0.0-1.1) 03/28/17 10:30 AST 23 IU/L (14-46) 03/28/17 10:30 ALT 30 IU/L (9-52) 03/28/17 10:30 Lactate Dehydrogenase 479 IU/L (313-618) 03/28/17 10:30 Patient ABO/Rh O POSITIVE 03/28/17 10:30 Antibody Screen NEGATIVE 03/28/17 10:30 Assessment & Plan Assessment: 36-year-old female presenting with labor, delivered a healthy baby girl , being evaluated for post-term insulin management in the setting of insulin- dependent diabetes Plan: 1. Insulin-dependent diabetes with hyperglyemia. Acute, new problem, further w/ u indicated. As mentioned above, the patient has had uncontrolled diabetes prior to her , with hemoglobin A1c ranging between 9 and 10%, purely diet managed at that time. Consequently, I believe that the patient will require ongoing insulin management, but is to be determined the exact amount, given that her required escalating doses with advancing gestational age. -reviewed outside records including 03/22/2017 note by Susan Plummer, reports that patient's glucose level did increase with the doses of betamethasone that she received -her total insulin consumption was approximately 150 units a day prior to this delivery, but her fasting blood glucose level this morning was 120 and her oral intake as yet to completely returned to normal -would recommend initiating low-dose basal insulin with NPH 5 units twice daily , to be started now, and evaluate fasting blood glucose level in a.m. -if the patient's fasting blood glucose level does not appear to be affected by this dosage of NPH, then the dosage can be up titrated to 10 units twice daily, with ongoing up titration as needed -would also recommend mealtime insulin with Humalog, based on our hospital's insulin sliding scale, patient to dose her on Humalog from her home supply -once we see some consistency regarding the amount of insulin required for each meal, then the patient can be discharged with recommendations to utilize a consistent mealtime dose moving forward -the patient will follow up closely with her primary admitted attorneys, Dr. Sandra Mcmahon, and they will discuss whether the patient would like to continue on insulin dosing or adjust to a sulfonylureas agent -patient reportedly experienced true allergic reactions to metformin and Invokana in the past -discussed with Dr. Pretty whether insulin is dangerous in the setting of , and it is her recommendation that the patient continue her routine care and breast feedings with her infant The Hospital Medicine service will continue to consult in this patient's daily care - Dr. Ram will be the rounding provider on 03/30/17.
[2017-03-29] MEDS: INSULIN NPH HUMAN 100 UNITS/ML SYRINGE SC SCH (23:00)
[2017-03-30] MEDS: IBUPROFEN 600 MG TAB PO PRN ×3 (05:32→18:52)
[2017-03-30] MEDS: INSULIN NPH HUMAN 100 UNITS/ML SYRINGE SC SCH ×3 (08:52→23:04)
[2017-03-30] MEDS: INSULIN LISPRO 100 UNIT/ML SC SCH ×3 (08:56→18:51)
[2017-03-30] MEDS: IRON POLYSAC/IRON HEME 28 MG TAB PO SCH (09:33)
[2017-03-30] MEDS: DOCUSATE SODIUM 100 MG CAP PO SCH (09:33)
[2017-03-30] MEDS ORDERED: MISOPROSTOL 200 MCG TAB PO ONE (11:45)
[2017-03-30] MEDS: HYDROCODONE/APAP 5/325 TAB PO PRN ×3 (11:46→23:05)
--- NOTE | 2017-03-30 12:09 | OBPP ---
Progress Note Assessment/Plan: Assessment: POD 1 1/2 s/p emergent C/S for intolerance to labor after SROM at 37 wks IDDM, obesity incomplete echo and baby to get one prior to D/C Plan: Routine care, Hospitalist has begun pt on 5u Humulin BID, FBS today 116. will cont 2 hr PP checks and FBS and f/u with Dr Mcmahon post Subjective/ Course: 03/29/17 09:55 Pt seen and examined. She is doing well, no complaints. No pain at this time, well controlled. Pt is OOB standing near baby in NICU, daniela diet, matias in place , no flatus yet. Denies any f/c/n/v/CP or SOB. Mild lochia. She desires to pump and eventually breastfeed. 03/30/17 12:10 Pt doing well. Working on baby latching and pumping. gets some colostrum. Took shower today and up amb ok. Pain in good control with infreq [place] and regular ibu. reg diet and no nausea. watching BS and knows to f/u with endo. urinating fine and bld is light. Objective: 03/29/17 05:45 03/28/17 10:30 Patient ABO/Rh O POSITIVE 03/28/17 10:30 Uric Acid 3.8 mg/dL (2.5-6.8) 03/28/17 10:30 Total Bilirubin 0.3 mg/dL (0.1-1.4) 03/28/17 10:30 Conjugated Bilirubin 0.0 mg/dL (0.0-0.5) 03/28/17 10:30 Unconjugated Bilirubin 0.3 mg/dL (0.0-1.1) 03/28/17 10:30 AST 23 IU/L (14-46) 03/28/17 10:30 ALT 30 IU/L (9-52) 03/28/17 10:30 Lactate Dehydrogenase 479 IU/L (313-618) 03/28/17 10:30 Temp Pulse Resp BP Pulse Ox 36.2 C 96 17 105/71 96 03/30/17 10:00 03/30/17 10:00 03/30/17 10:00 03/30/17 10:00 03/30/17 10:00 Uterine Position/Fundal Height: At Umbilicus Uterine Tone: Firm Physical Exam - Physical Exam Abdomen: non-tender (approp post op tenderness), soft, incision (CDI, steristrips in place) Skin: normal color, warm/dry Neuro/Psych: alert, normal mood/affect
[2017-03-30] MEDS: SENNOSIDES/DOCUSATE SODIUM TAB PO SCH ×2 (13:08→23:21)
--- NOTE | 2017-03-30 15:30 | HOSPPROG ---
Hospitalist Progress Note Assessment/Plan: 36 yo F s/p c section delivery with concurrent IDDM # IDDM: now well controlled on current regimen of insulin NPH 5 bid, sliding scale ordered as well but thus far patient has not been requiring it. Will continue to monitor # anemia: 2/2 expected post operative blood loss, has been started on iron and will continue to monitor # dispo: medicine will continue to follow while in house Subjective: no significant overnight events, patient feeling well Objective: Vital Signs Temp Pulse Resp BP Pulse Ox 36.2 C 96 17 105/71 96 03/30/17 10:00 03/30/17 10:00 03/30/17 10:00 03/30/17 10:00 03/30/17 10:00 Laboratory Results 03/29/17 05:45 03/28/17 10:30 03/29/17 03/30/17 03/31/17 05:59 05:59 05:59 Intake Total 400 Output Total 1700 235 Balance -1300 -235 awake alert nad anicteric no cce warm dry well perfused ICD10 Worksheet Patient Problems: Problems Problem Status Onset delivery with vacuum assistance, delivered, current hospitalization Acute Insulin dependent diabetes mellitus Acute
[2017-03-31] MEDS: IBUPROFEN 600 MG TAB PO PRN ×3 (00:27→13:27)
[2017-03-31] MEDS: IRON POLYSAC/IRON HEME 28 MG TAB PO SCH ×2 (00:42→07:34)
[2017-03-31] MEDS: DOCUSATE SODIUM 100 MG CAP PO SCH ×2 (00:43→07:34)
[2017-03-31] MEDS: INSULIN NPH HUMAN 100 UNITS/ML SYRINGE SC SCH (07:35)
[2017-03-31 07:40] VITALS: TEMP 96.8
[2017-03-31] MEDS: INSULIN LISPRO 100 UNIT/ML SC SCH ×2 (07:43→13:31)
--- NOTE | 2017-03-31 10:07 | OBPP ---
Progress Note Assessment/Plan: Assessment: nipples intact beginning to have luck with fed well this am ff@u scant rubra lochia elevated bp denies symptoms of pih fs this am WNL NPH 5u bid no need for sliding scale incision clean dry and intact ss in place pericare discussed incision care discussed pain management exercise echo to be repeated and radiology here to comply with order for the baby patient desires discharge today Plan:discharge requested discussed rest, pain management, bp, endocrinology fu for diabetes, fu with us 3 days, 2 weeks, 4 weeks and 6 weeks depression, contraception, ss infection, pericare, PIH symptoms, walking, verbalized understanding of all of the above 03/31/17 10:01 Subjective/ Course: 03/29/17 09:55 Pt seen and examined. She is doing well, no complaints. No pain at this time, well controlled. Pt is OOB standing near baby in NICU, daniela diet, matias in place , no flatus yet. Denies any f/c/n/v/CP or SOB. Mild lochia. She desires to pump and eventually breastfeed. 03/30/17 12:10 Pt doing well. Working on baby latching and pumping. gets some colostrum. Took shower today and up amb ok. Pain in good control with infreq [place] and regular ibu. reg diet and no nausea. watching BS and knows to f/u with endo. urinating fine and bld is light. 03/31/17 09:58 Pt doing well desires to be discharged today. Discussed reasoning behind discharge tomorrow. Continues to desire to be discharged. Working on resolution for section, Grieving the loss of a vaginal delivery. Lungs clear ambulating. Voiding without difficulty . Passing gas. Has not had a bm as of yet discussed why. Verbalized understanding. Discussed delivery and need for c/ s at patients and husbands request. Objective: 03/29/17 05:45 03/28/17 10:30 Patient ABO/Rh O POSITIVE 03/28/17 10:30 Uric Acid 3.8 mg/dL (2.5-6.8) 03/28/17 10:30 Total Bilirubin 0.3 mg/dL (0.1-1.4) 03/28/17 10:30 Conjugated Bilirubin 0.0 mg/dL (0.0-0.5) 03/28/17 10:30 Unconjugated Bilirubin 0.3 mg/dL (0.0-1.1) 03/28/17 10:30 AST 23 IU/L (14-46) 03/28/17 10:30 ALT 30 IU/L (9-52) 03/28/17 10:30 Lactate Dehydrogenase 479 IU/L (313-618) 03/28/17 10:30 Temp Pulse Resp BP Pulse Ox 36.0 C 95 16 124/85 H 96 03/31/17 07:30 03/31/17 07:30 03/31/17 07:30 03/31/17 07:30 03/31/17 07:30 Uterine Position/Fundal Height: At Umbilicus Uterine Tone: Firm Physical Exam - Physical Exam General Appearance: WD/WN, alert, no apparent distress Respiratory: chest non-tender, lungs clear, normal breath sounds Cardiac/Chest: regular rate, rhythm Abdomen: normal bowel sounds Extremities: normal range of motion, Sam's sign (negative bilaterally) DTR- Lower Extremities: Knee (R): 1+, Knee (L): 1+ (no clonus) Skin: normal color, warm/dry Neuro/Psych: no motor/sensory deficits, alert, normal mood/affect, oriented x 3
--- NOTE | 2017-03-31 10:13 | OBGCSDC ---
General Delivery Information - General Info : 5 Para: 1 Abortions: 4 Type: Primary L&D Analgesia/Anesthesia Type: Epidural Admission Date: 03/28/17 Labs: Patient ABO/Rh O POSITIVE 03/28/17 10:30 Hct 29.8 % (38.0-47.0) L 03/29/17 05:45 - Hospital Course Antepartum: 03/28/17 20:18 IDDM with poor control - early preg HgbA1c >10, FBS 90-120s. echo showed suboptimal aortic arch and interventricular septum. BMZ given Intrapartum: 03/28/17 20:08 pt comfortable with BERNARD, Anesth tested pt and she does NOT have a lidocaine allergy and was able to get BERNARD. Cont to leak clear fluid. Pt agrees to FSE and pitocin 03/28/17 21:00 Pt comfortable. pt advised that there are variable decels and likely because of LOF for 15+ hrs. discussed amnioinfusion - pt agrees to IUPC and amnioinfusion 03/29/17 00:06 Pt scared with decel and switching positions and agrees to C/S : 03/29/17 09:55 Pt seen and examined. She is doing well, no complaints. No pain at this time, well controlled. Pt is OOB standing near baby in NICU, daniela diet, matias in place , no flatus yet. Denies any f/c/n/v/CP or SOB. Mild lochia. She desires to pump and eventually breastfeed. 03/30/17 12:10 Pt doing well. Working on baby latching and pumping. gets some colostrum. Took shower today and up amb ok. Pain in good control with infreq [facility] and regular ibu. reg diet and no nausea. watching BS and knows to f/u with endo. urinating fine and bld is light. 03/31/17 09:58 Pt doing well desires to be discharged today. Discussed reasoning behind discharge tomorrow. Continues to desire to be discharged. Working on resolution for section, Grieving the loss of a vaginal delivery. Lungs clear ambulating. Voiding without difficulty . Passing gas. Has not had a bm as of yet discussed why. Verbalized understanding. Discussed delivery and need for c/ s at patients and husbands request. Vaginal - Diagnosis Labor: Augmented Rupture of Membranes Type: Spontaneous Amniotic Fluid Color: Clear - Procedures Non-surgical Procedures: FSE (placed without problems), IUPC (placed without problems) - Delivery Providers Surgeon: Araceli Jerry Speedometer Inspector: Elly Delcid () Anesthesiologist: Nader Payan - Delivery Non-surgical Procedures: FSE (placed without problems), IUPC (placed without problems) Data Ruiz Delivery Date: 03/28/17 Delivery Time: 21:39 ANN: 04/17/17 Gestational Age: 37 week(s) and 4 day(s) Sex of : Female Weight (gm): 2278 g Score (1 Min): 3 Score (5 Min): 7 Discharge Information - Discharge Information Prescriptions: Hydrocodone/APAP 5/325 [[facility] 5/325 (*)] 1 - 2 tab PO Q4HRS PRN #30 tab PRN Reason: Pain, Moderate Ibuprofen [Motrin (*)] 600 mg PO Q6HRS PRN #30 tab PRN Reason: post , inflammation Insulin NPH Human [humULIN N 100 UNITS/ML (*)] 5 units SC BIDAC@0730,2100 #1 ml Iron Polysacch/Iron Heme Polyp [Bifera] 28 mg PO BID #90 tab Sennosides/Docusate Sodium [Senokot-S] 1 - 2 tab PO BID #90 tab Condition: Good
[2017-03-31] MEDS: SENNOSIDES/DOCUSATE SODIUM TAB PO SCH ×2 (12:41→13:28)
[2017-03-31 13:29] VITALS: BP 123/86; PULSE 80; RESP 14; O2SAT 95
== END 2017-03-31 14:30 | disposition home or self-care (01) | DRG 765 ==
LOC: FLD 07:42 → FOB 03-29 02:00
PROVIDERS: ADMIT Obstetrics & Gynecology; ATTEND Obstetrics & Gynecology
PROC: 10D00Z1 Extraction of Products of Conception, Low, Open Approach (ICD-10-PCS; principal; 2017-03-28)
DX: O76 Abnormality in fetal heart rate and rhythm complicating labor and delivery (principal); O24.12 Pre-existing type 2 diabetes mellitus, in childbirth; Z37.0 Single live birth; Z3A.37 37 weeks gestation of pregnancy; Z79.4 Long term (current) use of insulin; O99.824 Streptococcus B carrier state complicating childbirth
CPT/HCPCS: J0290; J0690; J1815; J1885; J2210; J2250; J2274; J2370; J2405; J2590; J2704; J3010

== ENCOUNTER → 2017-04-25 | Outpatient (CLI) | payer OTHER | LOC: FLACT 13:58 | PROVIDERS: ATTEND Obstetrics & Gynecology | DX: O92.79 Other disorders of lactation (principal) | CPT/HCPCS: G0463 ==

== ENCOUNTER → 2017-05-15 | Outpatient (CLI) | payer OTHER | LOC: FLACT 13:02 | PROVIDERS: ATTEND Obstetrics & Gynecology | DX: O92.5 Suppressed lactation (principal) | CPT/HCPCS: G0463 ==